=== PATIENT | female | born 1960 | race American Indian/Alaskan Native ===

== ENCOUNTER 2016-09-11 08:34 | Emergency (ER) | payer MEDICAID ==
--- NOTE | 2016-09-11 11:22 | Emergency Department Report ---
Upper Extremity - HPI Chief Complaint: Extremity Injury, Upper Stated Complaint: RT HAND PAIN Time Seen by Provider: 09/11/16 11:21 Upper Extremity: Right Thumb Severity: mild Symptoms: Yes Pain with Movement, Yes Swelling, No Deformity, No Limited Range of Movement, No Numbness, No Weakness, No Bruising/Ecchymosis, No Laceration or Abrasion Other History: 56-year-old female past medical history diabetes, hypertension presents with complaint of 2-3 months of persistent right thumb pain. States that it is worse with range of motion. Denies any direct trauma or falls. Denies any paresthesias. 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 No visible erythema or redness of skin overlying the hand wrist or fingers. Patient describes swelling on the palmar aspect of the base of her thumb. No reports of fever or chills. Denies any wrist pain with flexion or extension of wrist. States that she has a job where she works consistently with her hands ED Review of Systems ROS: Stated complaint: RT HAND PAIN Other details as noted in HPI Constitutional: denies: chills, fever Eyes: denies: eye pain, eye discharge, vision change ENT: denies: ear pain, throat pain Respiratory: denies: cough, shortness of breath, wheezing Cardiovascular: denies: chest pain, palpitations Endocrine: no symptoms reported Gastrointestinal: denies: abdominal pain, nausea, diarrhea Genitourinary: denies: urgency, dysuria, discharge Musculoskeletal: as per HPI, arthralgia. denies: back pain, joint swelling Skin: denies: rash, lesions Neurological: denies: headache, weakness, paresthesias Psychiatric: denies: anxiety, depression Hematological/Lymphatic: denies: easy bleeding, easy bruising ED Past Medical Hx - Past Medical History Previous Medical History?: Yes Hx Diabetes: Yes (non compliance) Additional medical history: abd pain with left ovary, right ovary removed - Surgical History Past Surgical History?: Yes Additional Surgical History: Tubasligation, Exp lap for abd. pain, Right oophorectomy - Social History Smoking Status: Current Every Day Smoker Substance Use Type: Prescribed - Medications Home Medications: Home Medications Medication Instructions Recorded Confirmed Last Taken Type Naproxen [Naprosyn TAB] 375 mg PO BID PRN #30 tablet 09/11/16 Unknown Rx Upper Extremity Exam - Exam General: Vital signs noted. No distress. Alert and acting appropriately. Head and Torso: No HEENT Abnormality, No Neck Tenderness, No Chest/Lungs Abnormality, No Abdominal Tenderness, No Back Tenderness Shoulder Exam: Yes Normal Range of Motion in Shoulder, No Shoulder Tenderness, No Clavicle Tenderness, No Shoulder Deformity, No AC Joint Tenderness Arm Exam: No Arm/Humerus Tenderness, No Arm Deformity Elbow: No Elbow Tenderness, No Normal Range of Motion in Elbow, No Elbow Deformity Forearm: No Forearm Tenderness, No Forearm Deformity, No Pain with Pronation, No Pain with Supination Wrist: Yes Normal ROM in Wrist, Yes Pain with Axial Thumb Compression, No Wrist Tenderness, No Wrist Deformity, No Snuffbox Tenderness (there is no snuffbox tenderness) Hand: Yes Hand Tenderness (positive Braydon test right hand, there is no snuffbox tenderness on exam), Yes Digit Tenderness (there is mild swelling at the thenar eminence with some slight discomfort on deep palpation), Yes Normal ROM in Digit(s) (range of motion all fingers MCP is PIPs and DIPs is intact on exam. Range of motion with thumb abduction and abduction is painful to the patient), No Hand Deformity, No Digit(s) Deformity, No Tendon Dysfunction CMS Exam: Yes Normal Distal Pulses (distal radial and brachial pulses intact and ulnar pulses intact), Yes Normal Capillary Refill (capillary refill less than one second in all fingertips), Yes Normal Distal Sensation (distal sensation is intact), No Broken Skin Hand L/R Front: 1 - Visible slight swelling here ED Course Vital Signs 09/11/16 08:39 Temperature 98.7 F Pulse Rate 64 Respiratory 20 Rate Blood Pressure 141/81 O2 Sat by Pulse 99 Oximetry ED Medical Decision Making - Medical Decision Making A/P: Osteoarthritis right thumb, de Quervain's tenosynovitis right hand, thumb subluxation 1-case discussed with before discharge. ` On clinical exam there is good distal sensation range of motion is intact and MCPs PIPs and DIPs and distal capillary refill is less than one second in all fingers, distal radial and ulnar pulses are intact on palpation. Hand is neurovascularly intact on clinical exam 2-patient placed in right thumb spica splint, I advised her to wear this consistently until she is seen by an orthopedic doctor to obtain specialty medical treatment. I provided the patient with referral information for orthopedics and advised her to call for follow-up as soon as possible 3-naproxen when necessary 4- I educated the patient on signs and symptoms of cellulitis and infectious tenosynovitis and advised to return to the ED if she experiences any of these signs or symptoms. Patient stated that she clearly understood my instructions were for discharge Critical care attestation.: If time is entered above; I have spent that time in minutes in the direct care of this critically ill patient, excluding procedure time. ED Disposition Clinical Impression: De Quervain's tenosynovitis, right, Pain of right thumb Osteoarthritis of hand, right Qualifiers: Osteoarthritis type: other secondary Qualified Code(s): M19.241 - Secondary osteoarthritis, right hand Disposition: TO HOME OR SELFCARE Is pt being admited?: No Does the pt Need Aspirin: No Condition: Stable Instructions: Osteoarthritis (ED), De Quervain Disease (ED), Splint Care (ED), RICE Therapy (ED) Prescriptions: Naproxen [Naprosyn TAB] 375 mg PO BID PRN #30 tablet PRN Reason: Pain Referrals: MANDY ALLEN MD [Staff Physician] - 3-5 Days [facility] [Provider Group] - 3-5 Days Forms: Work/School Release Form(ED) Time of Disposition: 13:13
[2016-09-11] MEDS ORDERED: MOTRIN PO ONE (11:25)
--- NOTE | 2016-09-11 12:52 | XRay Report ---
X-RAY RIGHT HAND THREE VIEWS: 09/11/16 08:34:00 CLINICAL: Right thumb pain. FINDINGS: Severe osteoarthritis at the basal joint of the thumb. On one view there appears to be significant subluxation at the first carpal-metacarpal joint. No fracture. Normal soft tissues. The distal radius and ulna are normal. IMPRESSION: Severe osteoarthritis at the basal joint of the thumb with subluxation at the first carpal-metacarpal joint.
[2016-09-11 13:30] VITALS: BP 128/78
== END 2016-09-11 13:31 | disposition home or self-care (01) ==
LOC: ED 08:34
DX: M65.4 Radial styloid tenosynovitis [de Quervain] (principal); M19.241 Secondary osteoarthritis, right hand; M79.644 Pain in right finger(s); E11.9 Type 2 diabetes mellitus without complications; F17.200 Nicotine dependence, unspecified, uncomplicated

== ENCOUNTER 2020-01-18 06:03 | Emergency (ER) | payer MEDICAID ==
[2020-01-18 07:44] VITALS: BP 147/83
== END 2020-01-18 09:50 | disposition left against medical advice (07) ==
LOC: ED 06:03
DX: T76.21XA Adult sexual abuse, suspected, initial encounter (principal); Z53.21 Procedure and treatment not carried out due to patient leaving prior to being seen by health care provider

== ENCOUNTER 2020-06-22 08:53 | Outpatient (CLI) | payer MEDICAID ==
--- NOTE | 2020-06-23 02:06 | Treadmill Report ---
DATE OF SERVICE: 06/22/2020 TREADMILL STRESS TEST DATE OF PROCEDURE: 06/22/2020 ORDERING PHYSICIAN: Dr. Michael Viramontes, present in the office. INDICATION: Chest pain and hypertension. Baseline EKG is sinus rhythm. No ST-T abnormalities. Baseline heart rate was 55, baseline blood pressure is 114/55. The patient walked on Sheldon protocol for 9 minutes, achieved maximum heart rate of 144, which is greater than 85% max predicted heart rate. blood pressure was 179/80. The patient had no EKG changes or arrhythmias suggestive of ischemia. SUMMARY: 1. Negative treadmill EKG. 2. Good exercise capacity of 9 minutes Sheldon protocol. 3. There were no EKG changes or arrhythmias to suggest ischemia. 4. No exaggerated blood pressure response to exercise. TID: [id number] RECEIPT: [id number] AYAN/VANESSA/AMRIT
--- NOTE | 2020-06-23 10:24 | Treadmill Report ---
[facility] Test Date: 2020-06-22 Test Time: 10:53:00 Pat Name: RICK MEJIA Department: Room: OUT/PATIENT Gender: F Campaign Marketing Specialist: Olesya Melchor : 1960 Requested By: MELONIE MAYA Order Number: [id number] Reading MD: Eldon Murillo Interpretive Statements see dicated report Electronically Signed On 06-23-2020 10:23:34 EDT by Eldon Murillo
== END 2020-06-22 08:54 | disposition home or self-care (01) ==
LOC: CARD 08:53
DX: R07.89 Other chest pain (principal); I10 Essential (primary) hypertension; E11.9 Type 2 diabetes mellitus without complications
CPT/HCPCS: 93017